=== PATIENT | male | born 1965 | race Caucasian/White ===

== ENCOUNTER → 2024-10-05 | Outpatient (CLI) | payer MEDICARE, MEDICAID ==
[2024-10-05 16:12] LABS: ALBUMIN 4.4 g/dL (3.5-5.0)
[2024-10-05 16:13] LABS: CALCIUM 9.8 mg/dL (8.3-10.5)
[2024-10-05 16:14] LABS: TOTAL PROTEIN 7.2 g/dL (6.4-8.3)
[2024-10-05 16:16] LABS: TOTAL BILIRUBIN 0.4 mg/dL (0.2-1.2)
[2024-10-05 16:21] LABS: MAGNESIUM 1.47 mg/dL (1.60-2.60)
== END ==
LOC: LAB 15:49
PROVIDERS: Internal Medicine
DX: R06.00 Dyspnea, unspecified (principal); E11.9 Type 2 diabetes mellitus without complications; E78.2 Mixed hyperlipidemia; F33.1 Major depressive disorder, recurrent, moderate; E23.0 Hypopituitarism; Z87.81 Personal history of (healed) traumatic fracture

== ENCOUNTER → 2024-12-19 | Outpatient (CLI) | payer MEDICARE | LOC: RAD 16:58 | DX: M86.8X7 Other osteomyelitis, ankle and foot (principal) ==